=== PATIENT | female | born 1970 | race Caucasian/White ===

== ENCOUNTER 2023-10-29 05:00 | Day surgery (SDC) | payer BC ==
[~2023-10-29] VITALS: Ht 152.4 cm; Wt 94.8 kg
[2023-10-29] MEDS ORDERED: ACETAMINOPHEN 500 MG TABLET ONE (05:19)
[2023-10-29] MEDS ORDERED: CEFAZOLIN SOD 2 GM in D5W 50 ML IV ONE (07:00)
[2023-10-29] MEDS ORDERED: fentaNYL CITRATE/PF 100 MCG/2 ML AMP ONE (07:28)
[2023-10-29] MEDS ORDERED: PROPOFOL 200MG/ 20ML VIAL (DIPRIVAN) IV ONE (07:28)
[2023-10-29] MEDS ORDERED: WATER FOR IRRIGATION,STERILE 1,000 ML IRRIG.SOLN IR ONE (07:28)
[2023-10-29] MEDS ORDERED: NS IRRIG SOLN 1000 ML IR ONE (07:28)
[2023-10-29] MEDS ORDERED: LR 1,000 ML IV.SOLN IV ONE (07:28)
[2023-10-29] MEDS ORDERED: ONDANSETRON HCL 4 MG/2 ML VIAL ONE ×2 (07:28→09:37)
[2023-10-29] MEDS ORDERED: KETOROLAC TROMETHAMINE 30 MG VIAL ONE (07:28)
[2023-10-29] MEDS ORDERED: MIDAZOLAM HCL 2 MG/2 ML VIAL (VERSED) ONE (07:28)
[2023-10-29] MEDS ORDERED: SUCCINYLCHOLINE CHLORIDE 20 MG/ML(QUELICIN) ONE (07:28)
[2023-10-29] MEDS ORDERED: SEVOFLURANE 15 MIN GAS INH ONE (07:28)
[2023-10-29] MEDS ORDERED: BUPIVACAINE /PF 0.5% 30 ML VIAL ONE (07:28)
[2023-10-29] MEDS ORDERED: KETOROLAC TROMETHAMINE 30 MG VIAL IVP PRN (08:30)
[2023-10-29] MEDS ORDERED: ACETAMINOPHEN I.V. 1000 MG 100 ML IV ONE (08:30)
[2023-10-29] MEDS ORDERED: METOCLOPRAMIDE HCL 10 MG/2 ML VIAL IVP PRN (08:30)
[2023-10-29] MEDS ORDERED: BUPIVACAINE /PF 0.5% 30 ML VIAL INJ ONE (08:35)
[2023-10-29] MEDS: HYDROmorphone 1 MG/ML INJ. CARTRIDGE IVP PRN (09:30)
[2023-10-29] MEDS: ONDANSETRON HCL 4 MG/2 ML VIAL IVP PRN (09:30)
[2023-10-29] MEDS ORDERED: HYDROmorphone 1 MG/ML INJ. CARTRIDGE ONE (09:37)
[2023-10-29 10:51] VITALS: O2SAT 94
[2023-10-29 15:10] VITALS: BP_SYST 116; PULSE 89; RESP 16
[2023-10-30] MEDS: ACETAMINOPHEN 500 MG TABLET PO ONE (05:56)
== END 2023-10-29 13:20 | disposition home or self-care (01) ==
LOC: SDS 05:00 → SMU 05:00 → SDS 13:20
PROVIDERS: ATTEND Student in an Organized Health Care Education/Training Program
DX: S82.022A Displaced longitudinal fracture of left patella, initial encounter for closed fracture (principal); I10 Essential (primary) hypertension; E11.9 Type 2 diabetes mellitus without complications; F33.1 Major depressive disorder, recurrent, moderate; E55.9 Vitamin D deficiency, unspecified; E66.01 Morbid (severe) obesity due to excess calories; Z68.41 Body mass index [BMI] 40.0-44.9, adult; Z79.84 Long term (current) use of oral hypoglycemic drugs; Z79.899 Other long term (current) drug therapy; Z98.890 Other specified postprocedural states; Z86.73 Personal history of transient ischemic attack (TIA), and cerebral infarction without residual deficits; X58.XXXA Exposure to other specified factors, initial encounter; Y93.89 Activity, other specified; Y92.89 Other specified places as the place of occurrence of the external cause; Y99.8 Other external cause status
CPT/HCPCS: 27524; 87081; 82948; J3490; J0690; J1885; J3465; J2405; J2704; J0330; J3010; J1170; J7060; J7120; L1830; C1713 ×2; 76000